=== PATIENT | female | born 1990 | race African-American/Black ===

== ENCOUNTER 2017-03-12 11:48 | Emergency (ER) | payer OTHER ==
[~2017-03-12] VITALS: Ht 160 cm; Wt 86.2 kg
[~2017-03-12 11:48] MED LIST: DENIES; DOXYCYCLINE 10100 MG PO; IBUPROFEN 600600 M1 PO; IBUPROFEN 800800 MG PO; KEFLEX500 MG PO; NOHOMEMEDICATIONS; PENICILLIN V P500 MG PO; PERCOCET 5-3251 EACH PO; PHENERGAN-CODE120 ML PO; PREDNISONE 20 M20 M1 PO; PROMETRIUM100 MG PO; PROVENTIL HFA6.7 G1 INH; ROBITUSSIN100 MG/53 PO; ULTRAM 50MG TAB50 MG PO; ZPAK PO
[2017-03-12 12:13] LABS: ABSOLUTE NEUTROPHILS 4.9 thou/uL (1.4-8.2)
[2017-03-12 12:14] LABS: BASOPHILS 0.7 % (0.0-2.0); EOSINOPHILS 1.3 % (0.0-3.0); HEMATOCRIT 40.5 % (37.0-47.0); HEMOGLOBIN 13.4 gm/dL (12.0-15.0); LYMPHOCYTES 17.5 % (24.0-44.0); MCH 31.1 pg (26.0-34.0); MCHC 33.1 g/dL (28.0-37.0); MONOCYTES 4.5 % (1.0-8.0); PLATELET COUNT 283 thou/uL (150-400); RBC 4.31 mil/uL (4.20-5.00); RDW 14.3 % (10.5-14.5); WBC 6.4 thou/uL (4.0-11.0)
[2017-03-12 12:15] LABS: URINE BILIRUBIN NEGATIVE (Negative); URINE BLOOD TRACE (Negative); URINE COLOR YELLOW; URINE GLUCOSE-RANDOM* NEGATIVE (Negative); URINE KETONES NEGATIVE (Negative); URINE LEUKOCYTES-REFLEX NEGATIVE (Negative); URINE PROTEIN (DIPSTICK) NEGATIVE (Negative); URINE UROBILINOGEN 0.2 E.U./dl (0.2-1.0)
[2017-03-12 12:16] LABS: MANUAL DIFF NO
[2017-03-12 12:21] LABS: CALCIUM 8.9 mg/dL (8.5-10.1); CREATININE 0.8 mg/dL (0.6-1.0); POTASSIUM 3.7 mmol/L (3.5-5.1)
[2017-03-12 12:27] LABS: ALBUMIN 4.2 g/dL (3.4-5.0); TOTAL BILIRUBIN 0.5 mg/dL (<0.1-1.0); TOTAL PROTEIN 7.6 g/dL (6.4-8.2)
[2017-03-12] MEDS ORDERED: PHENERGAN 25 MG25 M1 PO (12:48)
[2017-03-12] MEDS ORDERED: ZANTAC 150MG T150 MG PO (12:48)
[2017-03-12 13:24] VITALS: BP 119/67
== END 2017-03-12 13:25 | disposition home or self-care (01) ==
LOC: ER 11:48
PROVIDERS: Physician Assistant
DX: R10.13 Epigastric pain (principal); R19.7 Diarrhea, unspecified; R11.0 Nausea; J45.909 Unspecified asthma, uncomplicated; F17.210 Nicotine dependence, cigarettes, uncomplicated; F10.99 Alcohol use, unspecified with unspecified alcohol-induced disorder; Z98.890 Other specified postprocedural states